=== PATIENT | female | born 1945 | race African-American/Black ===

== ENCOUNTER 2016-05-17 10:21 | Inpatient (IN) | payer OTHER ==
--- NOTE | ~2016-05-17 | HP ---
History And Physical [place] [id number] [facility] [place]. [address] NAME: ESTEFANY LINN : [birth year] STATUS : REG ER PAT#: [id number] AGE: 70 ADM/REG DATE : 05/17/16 MR#: [id number] REPORT SERV DATE: 05/17/16 DICTATED BY: ELEUTERIO LUNDBERG DATE: 05/17/16 REPORT STATUS : Draft TRANSCRIBED BY: MODGordon DATE: 05/17/16 DATE OF ADMISSION: 05/17/2016 REASON FOR ADMISSION: Chest pain with pulmonary embolism and elevated troponin. HISTORY: This is a 70-year-old black female who had a sudden onset of chest discomfort earlier today. She had shortness of breath. She is unable to get her breath fully. She does have a history of cardiac disease but had a negative graded exercise test by Dr. Armond Reich about 12 months ago. She came to the emergency room where she had a slightly elevated D-dimer but the troponin level was 0.21. She is still having some chest discomfort associated with this. She has a gassy feeling with some burping and belching. She feels hot and sweaty with it. She vomited with it as well. CTA of the chest did show evidence of a small pulmonary embolism. The EKG shows diffuse nonspecific ST and T-wave changes and left axis deviation. She does have a single pulmonary embolus in the posterior medial right lower lobe pulmonary artery, it does not occlude the artery and is likely subacute. There are no other emboli in other arteries. No lung masses or lung infiltrates were noted. The patient does have a history of high blood pressure and is seen by Dr. Eleuterio Colon for this. She has been admitted to the hospital for cardiac evaluation and for treatment of PE. We will plan to start with heparin because Eliquis which had been considered first may preclude further diagnostic cardiovascular testing which may be invasive. PAST MEDICAL HISTORY: MEDICATIONS: She is on the following medications at home from Dr. Colon and Dr. Louise: Aspirin 325 p.o. daily; Lipitor 20 mg p.o. at bedtime; Pepto-Bismol p.r.n. upset stomach; carvedilol 6.25 p.o. b.i.d.; Welchol 1875 mg p.o. q.p.m.; diltiazem XR 240 mg p.o. daily; Tylenol PM tablet at bedtime as needed; estradiol 2 mg p.o. each morning; multivitamins 1 a day; omeprazole 40 mg p.o. daily; potassium 20 mEq p.o. q.p.m.; sodium chloride nasal spray p.r.n.; pqfo-gjv-bktvhsk iron; and valsartan 160/12.5 HCT 1 p.o. q.a.m. ALLERGIES: NONE ARE KNOWN. SURGICAL HISTORY: She has had gallbladder surgery in the past. SOCIAL HISTORY: She is . She has 4 children, all of whom are alive and well. She does not smoke cigarettes or take any alcohol. She attends [employer]. She lives in the [facility] and grew up in [place]. FAMILY HISTORY: She had 3 brothers, 1 of lung cancer. She has 3 sisters. Her mother History And Physical [address] [address] NAME: ESTEFANY LINN : [birth year] STATUS : REG ER PAT#: [id number] AGE: 70 ADM/REG DATE : 05/17/16 MR#: [id number] REPORT SERV DATE: 05/17/16 DICTATED BY: ELEUTERIO LUNDBERG. DATE: 05/17/16 REPORT STATUS : Draft TRANSCRIBED BY: MARY LOU DATE: 05/17/16 had diabetes. Father of cancer as well. REVIEW OF SYSTEMS: She has had a colonoscopy and had a few polyps. She has had a weight loss of about 30 pounds over the last six months. Workup is in progress. Colonoscopy was negative. She is next going to have some sort of upper endoscopy. She has had abdominal pain intermittently. She has had diarrhea as well and the Welchol is what suppresses that as well as the high cholesterol. She has had no swelling of the lower extremities. No leg pain. No claudication. No chest pain with exertion. Her chest pain came on today at rest while she was lying in bed and has been in discomfort, this persisted ever since. It was noted. No abdominal swelling. No melena, hematemesis, fits, seizures, convulsions, or unilateral weakness. She has had no blood in her stool. No hemoptysis. No hematuria. No fever, chills, or night sweats. The remainder of the review of systems is negative. PHYSICAL EXAMINATION: VITAL SIGNS: Blood pressure 137/72 with a heart rate was 109, respiratory rate 18, afebrile. HEENT: EOMI. Sclerae clear. Conjunctivae pink. NECK: No bruit without any JVD. CHEST: Clear to A and P. HEART: Regular. S1, S2 without murmur, gallop, or click. BREASTS: Grossly without mass. ABDOMEN: Soft, nontender. Bowel sounds positive. No HSM. EXTREMITIES: She has had no edema. Distal pulses intact in dorsalis pedis and posterior tibial. NEUROLOGIC: She withdraws to plantar stimulation. Spinning Mule Tender equal and symmetric bilaterally. Coordination intact. She has no tremor. She has no sensory or motor deficit. SKIN: Without rash, ecchymosis, or bruising. LYMPHATICS: There is no adenopathy palpable. LABORATORY: 1. CT scan of the chest shows small single pulmonary embolus posterior medial right lower lobe that is not occlusive. 2. Elevated troponin at 0.21. 3. EKG abnormal with left axis deviation, diffuse ST and T-wave changes consistent with a possible previous inferior scar but no acute changes and this EKG has not changed from previous. 4. Chest x-ray was clear. 5. Liver tests were normal. Sodium 132, potassium 4.2, chloride 95, glucose 120, magnesium 1.5, calcium 8.0. Troponin 0.19. AST 49. The hemoglobin 10.4, hematocrit 31.5, white count is 3.5, and platelets 224,000. 6. The D-dimer was 0.58. 7. Portable chest x-ray showed no acute abnormality. History And Physical [address] [address] NAME: ESTEFANY LINN : [birth year] STATUS : REG ER PAT#: [id number] AGE: 70 ADM/REG DATE : 05/17/16 MR#: [id number] REPORT SERV DATE: 05/17/16 DICTATED BY: ELEUTERIO LUNDBERG DATE: 05/17/16 REPORT STATUS : Draft TRANSCRIBED BY: MODL DATE: 05/17/16 ASSESSMENT: 1. Pulmonary embolism. 2. ASCVD followed by Dr. Louise, now with elevated troponin with chest pain suspicious for angina pectoris though it is not exertional. We will follow serial troponins. I am going to go ahead and start with heparin IV though had initially thought that we would use Eliquis but this may preclude cardiac catheterization if necessary and Dr. Louise agrees. 3. Hypertension. 4. Estrogen deficiency, on estrogen . 5. Irritable bowel syndrome with diarrhea on Welchol. 6. History of colonoscopy with colonic polyps. 7. Weight loss of 30 pounds over the last six months. Possible occult malignancy. We will check CT scan of the abdomen looking for hypercoagulable induced state such as with pancreatic cancer or other occult malignancy. PLAN: With the elevated troponin, we will hold on the Eliquis for now but start back at b.i.d. for 7 days, then [address] Louise feels arteriography is not necessary and there is no change to the troponin and this is all demand ischemia. We will do a CT scan of the abdomen to rule out malignancy. We will start with the heparin protocol. DB/MODL Eleuterio Lundberg M.D. / [id number] CC: MD Eleuterio Mejia II, M.D.
--- NOTE | ~2016-05-17 | CN ---
Consultation Report [id number] [facility] [address] NAME: ESTEFANY GARZA : [birth year] STATUS : ADM IN PAT#: [id number] AGE: 70 ADM/REG DATE : 05/17/16 MR#: [id number] REPORT SERV DATE: 05/22/16 DICTATED BY: BRINA ADAMES DATE: 05/22/16 REPORT STATUS : Draft TRANSCRIBED BY: MODGordon DATE: 05/22/16 GI CONSULTATION DATE OF CONSULTATION: 05/22/2016 REASON FOR CONSULTATION: Evaluation and management of Hemoccult-positive stools, need for anticoagulation, and further evaluation of GI tract. HISTORY OF PRESENT ILLNESS: Ms. Garza is a very pleasant 70-year-old female patient, known to Dr. Misael Elam in the outpatient setting, who presented to [facility] on 05/17 with a chief complaint of chest pain and found to have pulmonary embolus as well as elevated troponins. She has been seen and evaluated by Cardiology, who feels like this is stress cardiomyopathy, [id number] [place]. She has a subacute pulmonary embolus, presently on a heparin drip. She has a history of anemia of iron deficiency with Hemoccult-positive stools here in the hospital. Last hemoglobin in 11/2015 was 11.4; on admission, she was 10.4 and presently, she is 9.9. She states that she has seen dark stools, but she is also on iron supplementation. She states that she has had some epigastric abdominal pain and weight loss of 30 pounds over the last six months with a decreased appetite. She does endorse some dysphagia to solids as well as nausea, but no emesis. She has had a recent colonoscopy with Dr. Elam on 04/08/2016. Indication for that exam was diarrhea. She was found to have a hepatic flexure polyp, which was biopsied and found within normal limits. She had a rectosigmoid polyp removed, found to be tubular adenomatous type. Findings of ascending and sigmoid colon diverticulosis as well as having random biopsies taken throughout the colon, which were all normal. Presently, she has had breakfast and is on a heparin drip. I have discussed with her we will plan to proceed with EGD tomorrow on 05/23. Risks, benefits, alternatives, and complications were detailed for her to include, but not limited to risk of bleeding, perforation, infection, reaction to medications as well as cardiac and pulmonary side effects. She is agreeable to proceed. PAST MEDICAL HISTORY: Positive for colon polyps, diverticulosis, diarrhea, hypertension, dyslipidemia, mild diastolic dysfunction, GERD. PAST SURGICAL HISTORY: Cholecystectomy. FAMILY HISTORY: Negative from a GI standpoint. SOCIAL HISTORY: Denies alcohol, tobacco, or illicits. ALLERGIES: NO KNOWN ALLERGIES. HOME MEDICATIONS: 325 mg aspirin, Lipitor. Pepto-Bismol, Coreg, Welchol, Cartia, Tylenol, estradiol, multivitamin, Prilosec, potassium, Devine nasal spray, wotp-kbr-nzzmedu iron tablet, Diovan. Consultation Report [address] [place]. [address] NAME: ESTEFANY GARZA : [birth year] STATUS : ADM IN MERGED WITH [facility]#: [id number] AGE: 70 ADM/REG DATE : 05/17/16 MR#: [id number] REPORT SERV DATE: 05/22/16 DICTATED BY: BRINA ADAMES DATE: 05/22/16 REPORT STATUS : Draft TRANSCRIBED BY: MARY LOU DATE: 05/22/16 REVIEW OF SYSTEMS: A 10-point review of systems obtained, pertinent positives addressed in the history of present illness. PERTINENT LABORATORY DATA: Sodium 139, potassium is 4.2, BUN is 6, creatinine 0.55. White count 4.1, hemoglobin 9.9, hematocrit is 29.3 with platelet count of 214. INR of 1.1. MICROBIOLOGY: Hemoccult positive, 03/03. PHYSICAL EXAMINATION: VITAL SIGNS: Temperature is 96.8, pulse of 80, respirations 20, and blood pressure 104/66. NEURO: Reveals an alert female, who is walking in her room. GENERAL: She is cooperative. She is in no obvious acute distress. She is awake, alert, and oriented x3. HEAD, EARS, EYES, NOSE, AND THROAT: Anicteric. Pupils equal, round, reactive to light and accommodation. Normocephalic and atraumatic. NECK: No JVD. No palpable nodes. LUNGS: Diminished with normal respiratory effort exhibited. Equal expansion. CARDIOVASCULAR SYSTEM: Regular rate and rhythm. ABDOMEN: Soft, nondistended, nontender with active bowel sounds in all four quadrants. No organomegaly appreciated. EXTREMITIES: No edema. Normal distal pulses. SKIN: Warm, dry, and intact. ASSESSMENT: 1. Hemoccult-positive stools without overt signs of bleeding. 2. Acute on chronic anemia. 3. Stress cardiomyopathy. 4. Pulmonary embolism. 5. History of diarrhea with negative colonoscopy with biopsies on 04/08/2016. PLAN: 1. N.P.O. after midnight. 2. Hold heparin drip four to six hours prior to endoscopy. 3. EGD tomorrow on 05/[address] Anne. 4. Continue proton pump inhibitor. 5. Other recommendations to follow endoscopy. ROSEANNE/MARY LOU JUDSON Venegas Consultation Report [address] [place]. [address] NAME: ESTEFANY GARZA : [birth year] STATUS : ADM IN [facility]GED WITH [facility]#: [id number] AGE: 70 ADM/REG DATE : 05/17/16 MR#: [id number] REPORT SERV DATE: 05/22/16 DICTATED BY: BRINA ADAMES DATE: 05/22/16 REPORT STATUS : Draft TRANSCRIBED BY: MARY LOU DATE: 05/22/16 / [id number] CC: DO Pop Leiva M.D.
--- NOTE | ~2016-05-17 | CN ---
Consultation Report [address] [place]. [address] NAME: ESTEFANY GARZA : [birth year] STATUS : ADM IN PAT#: [id number] AGE: 70 ADM/REG DATE : 05/17/16 MR#: [id number] REPORT SERV DATE: 05/17/16 DICTATED BY: ABDOULAYE HERNANDEZ DATE: 05/17/16 REPORT STATUS : Draft TRANSCRIBED BY: MODGordon DATE: 05/17/16 CARDIOLOGY CONSULTATION NOTE DATE OF CONSULTATION: 05/17/2016 REASON FOR CONSULTATION: Elevated cardiac biomarkers in a 70-year-old woman with newly diagnosed right segmental pulmonary embolism. HISTORY OF PRESENT ILLNESS: Ms Garza is a pleasant 70-year-old woman with no known coronary heart disease. The patient does have a history of chest pain lasting somewhat more than 12 months. She has undergone an extensive workup by Dr. Fransico Louise, including an exercise treadmill stress test with myocardial perfusion imaging performed in December of 2014. The patient had a normal stress test. She had no chest pain on the treadmill at that time. The patient reports that her chronic chest pain is a burning sensation in the substernal region. It is not exacerbated by exertion, but is occasionally associated with nausea. The patient denies any palpitations, dizziness, or syncope. She denies orthopnea or paroxysmal nocturnal dyspnea. The patient reports one to two days of a recent onset abdominal pain associated with nausea and belching. It is this pain that brought the patient to the emergency room. The patient also describes a hot and sweaty sensation. She had a single episode of emesis. The patient underwent CT scan of the thorax. This showed a right segmental pulmonary embolus. There is no other acute cardiopulmonary disease reported. The patient continues to have chest pain at this time, which is exacerbated by deep inspiration. She is otherwise without specific complaints. PAST MEDICAL HISTORY: 1. Hypertension. 2. Dyslipidemia. 3. History of mild diastolic dysfunction by echocardiography. 4. Gastroesophageal reflux disease. PAST SURGICAL HISTORY: Significant for cholecystectomy in the past. FAMILY HISTORY: This is negative for early coronary heart disease or sudden cardiac . SOCIAL HISTORY: The patient has no significant history of tobacco, alcohol, or drug use. She is and has four children, all of whom are alive and well. ALLERGIES: THE PATIENT HAS NO KNOWN MEDICATION ALLERGIES. HOME MEDICATIONS: Consultation Report [address] [place]. [address] NAME: ESTEFANY GARZA : 47 STATUS : ADM IN PAT#: [id number] AGE: 70 ADM/REG DATE : 05/17/16 MR#: [id number] REPORT SERV DATE: 05/17/16 DICTATED BY: ABDOULAYE HERNANDEZ DATE: 05/17/16 REPORT STATUS : Draft TRANSCRIBED BY: MARY LOU DATE: 05/17/16 1. Aspirin 81 mg p.o. daily. 2. Lipitor 20 mg p.o. q.h.s. 3. Pepto-Bismol 30 mL p.o. as needed. 4. Carvedilol 6.25 mg p.o. twice daily. 5. WelChol 1875 mg p.o. q.h.s. 6. Diltiazem XT 240 mg p.o. daily. 7. Tylenol P.M. one tablet p.o. q.h.s. 8. Estradiol 2 mg p.o. q.a.m. 9. Multivitamin with minerals one tab daily. 10.Omeprazole 40 mg p.o. q.a.m. 11.Potassium chloride 20 mEq p.o. q.h.s. 12.Saline nasal spray. 13.Valsartan/hydrochlorothiazide 160 mg/12.5 mg one tab q.a.m. 14.Iron supplementation one tab q.p.m. REVIEW OF SYSTEMS: A complete 12-system review was performed. This is significant for an unintentional 30- pound weight loss over the preceding several months. The 12-system review is otherwise noncontributory except for the pertinent positives and negatives noted in the history of present illness above. PHYSICAL EXAMINATION: VITAL SIGNS: Temp is 97.3 degrees Fahrenheit, blood pressure is 124/95 mmHg, heart rate is 120 beats per minute and regular, respirations 18, and oxygen saturation is 99% on 2 L nasal cannula. GENERAL: The patient is a somewhat fatigued, but otherwise well-nourished well-developed woman, in no acute distress. EYES: PERRL, EOMI, clear conjunctiva. HEAD/MNT: NCAT with moist mucous membranes and grossly normal hard and soft palate. NECK: Supple with no obvious thyromegaly or lymphadenopathy CARDIOVASCULAR: There is a regular rhythm with a normal S1 and a physiologically split second heart sound. Aside from a mildly elevated heart rate, the exam is otherwise unremarkable. The jugular venous pressure appears normal. PULMONARY: Clear to auscultation bilaterally with no wheezing, rales, rhonchi, or dullness to percussion. ABDOMINAL: Soft, non-tender, non-distended with no hepatosplenomegaly noted. EXTREMITIES: No clubbing, cyanosis or edema. MUSCULOSKELETAL: Grossly normal strength and range of motion in all extremities INTEGUMENTARY: Skin appears intact with no bruises, wounds or active lesions noted NEURO/PSYC: Alert and oriented x3, with no dysarthria, facial droop or lateralizing weakness noted. STUDIES: 12-lead EKG: The EKG shows poor anterior R-wave progression with nonspecific ST/T- wave abnormalities. It is not significantly changed since a previous tracing from Dr. Louise's office dated 11/29/2015. Consultation Report [address] [place]. [address] NAME: ESTEFANY GARZA : 49 STATUS : ADM IN PAT#: [id number] AGE: 70 ADM/REG DATE : 05/17/16 MR#: [id number] REPORT SERV DATE: 05/17/16 DICTATED BY: ABDOULAYE HERNANDEZ DATE: 05/17/16 REPORT STATUS : Draft TRANSCRIBED BY: MARY LOU DATE: 05/17/16 LABORATORY DATA: CBC shows a white blood cell count of 3.5, hemoglobin 10.4, hematocrit 32, platelets 226. INR is 1.1. PTT is 30. Sodium is 132, potassium 4.2, chloride is 95, CO2 of 24, BUN 14, creatinine is 0.8, glucose 120, calcium is 8.0, magnesium is 1.5. Troponin is elevated 0.19, AST is 43. The patient did have a mildly elevated D-dimer. ASSESSMENT AND PLAN: 1. Elevated cardiac biomarkers: This is most likely secondary to right ventricular strain from the patient's pulmonary embolism. The patient's chest pain is not strongly suggestive of angina. I would recommend that a transthoracic echocardiogram be performed. If there is evidence of right ventricular strain, this is the most likely etiology of the patient's elevated cardiac biomarkers. If the patient's right ventricular function is normal, it may be reasonable to consider cardiac catheterization next week for definitive exclusion of coronary heart disease given the patient's long history of chest pain. The patient will be started on IV heparin drip for treatment of her pulmonary embolism. We would recommend oral anticoagulation for at least six months. 2. Weight loss and pulmonary embolism: A workup for occult malignancy should be pursued. 3. Hypertension: We will continue the patient's home medication regimen as necessary. We will hold antihypertensive for any evidence of shock. Thank you for allowing me to participate in the care of Ms Garza. The Cardiology Service will continue to follow the patient closely during this admission. JCH/MODL Abdoulaye Hernandez MD / [id number] CC: MD Pop Mejia II, M.D.
--- NOTE | ~2016-05-17 | DS ---
Discharge Summary [place] [place]. [address] NAME: ESTEFANY LINN : [birth year] STATUS : DIS IN PAT#: [id number] AGE: 70 ADM/REG DATE : 05/17/16 MR#: [id number] REPORT SERV DATE: 05/25/16 DICTATED BY: ELEUTERIO LAWSON DATE: 05/24/16 REPORT STATUS : Draft TRANSCRIBED BY: MODL DATE: 05/24/16 ADMISSION DATE: 05/17/2016 DISCHARGE DATE: 05/24/2016 DISCHARGE DIAGNOSES: 1. Subacute pulmonary embolus. 2. Takotsubo stress cardiomyopathy. 3. Transient hypotension associated with medication. 4. Occult gastrointestinal bleeding. 5. Acute blood loss anemia. 6. Nonbleeding superficial gastric ulcer with no stigmata of bleeding in gastric antrum on EGD, 05/23/2016. 7. Gastritis, biopsy pending, 05/23/2016 EGD. 8. White speckled mucosa gastric body, biopsy pending, EGD 05/23/2016. 9. Welchol responsive diarrhea with recent colonoscopy, Dr. Elam, 04/08/2016, demonstrating hepatic flexure polyp, rectosigmoid polyp, an ascending and sigmoid colon diverticulosis with negative colon biopsies. 10.Abnormal serum protein electrophoresis, immunofixation pending. Needs office followup. OPERATIONS AND PROCEDURES: Coronary arteriography, 05/20/2016, Dr. Hernandez. PRESENT ILLNESS: This is a 70-year-old female, who was triaged in the emergency room on 05/17/2016 at 1021 hours complaining of chest pain. In the setting of estrogen replacement therapy, she was evaluated for a pulmonary embolus with a CT angiogram. This demonstrated a single pulmonary embolus in the posterior medial right lower lobe pulmonary artery, partially retracted without complete occlusion suggesting subacute pulmonary embolus. No other abnormalities were noted. She was referred to the Hospitalist Service for admission. She was seen by Dr. Eleuterio Shukla and admitted as described on admission history and physical examination. ADDITIONAL HISTORY: Per Dr. Shukla. PHYSICAL EXAMINATION: Per Dr. Shukla. ADMISSION LABORATORY: Per Dr. Shukla. HOSPITAL COURSE: She was admitted by Dr. Shukla with: 1. Pulmonary embolus. 2. Chest pain with elevated troponin in the setting of negative stress imaging within the past 12 months. 3. Hypertension. 4. Estrogen deficiency, on estrogen replacement. Discharge Summary [place] [address] [place]. [address] NAME: ESTEFANY LINN : [birth year] STATUS : DIS IN PAT#: [id number] AGE: 70 ADM/REG DATE : 05/17/16 MR#: [id number] REPORT SERV DATE: 05/25/16 DICTATED BY: ELEUTERIO LAWSON DATE: 05/24/16 REPORT STATUS : Draft TRANSCRIBED BY: MARY LOU DATE: 05/24/16 5. Welchol responsive diarrhea with history of colon polyps and diverticulosis. 6. Weight loss, consider occult malignancy. On admission, she was placed on [address] [place] [address]. She was started on a heparin drip. 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 Louise. Additional imaging was done to evaluate malignancy given her presentation as described. She was admitted to [address] [place] [address]. Her cardiac troponins trended 0.19, 0.91, 0.58, 0.30, and 0.17. An echocardiogram was done that showed mild LV enlargement with dilatation of the left ventricular apex. There was severe decrease in systolic function with anterior anteroseptal apical akinesis. Estimated ejection fraction was 30%. There was no evidence of an apical thrombus. There was normal RV size and systolic function. She was started on guideline-directed medical therapy for left ventricular dysfunction. She developed some hypotension requiring medication adjustment and IV fluids. On 05/20/2016, she was taken to the catheterization laboratory. She was found to have normal epicardial coronary arteries. She had severely depressed left ventricular systolic function with an estimated EF at 20%-25%. She had hyperkinetic systolic function of the basal myocardium with akinesis of the mid and apical myocardial segments consistent with stressed induced or Takotsubo cardiomyopathy. There was severely elevated left ventricular end-diastolic pressure of 28. There was mild dilatation of the ascending thoracic aorta. Medical therapy was recommended. For hospitalist care, post admission was by Dr. Little through 05/20/2016. Her care was assumed by the undersigned on 05/21/2016, and she was followed until discharge. A CT scan of her abdomen done post admission had demonstrated tiny bilateral pleural effusions with minimal atelectatic changes. There was a right hepatic lobe cyst. 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 There was a left renal cyst, and she was post hysterectomy. Her total bilirubin, alkaline phosphatase, and ALT were normal. Her AST was borderline at 43. No further imaging was pursued. On admission, her hemoglobin was 10.4. On 05/20/2016, it was 9 4. An evaluation included an iron of 28, TIBC 236, ferritin 446, B12 of 555. An LDH was 150. Her reticulocyte count was 2.5%, absolute 81.7. A serum protein electrophoresis was done which demonstrated abnormal gamma region bands and an immunofixation is pending. A stool was checked for occult blood and was positive. GI consultation was obtained for an EGD to further evaluate her admitting GI symptoms, weight loss, positive stool, and pulmonary embolus with need for anticoagulation. Discharge Summary [address] [address] NAME: ESTEFANY LINN : [birth year] STATUS : DIS IN PAT#: [id number] AGE: 70 ADM/REG DATE : 05/17/16 MR#: [id number] REPORT SERV DATE: 05/25/16 DICTATED BY: ELEUTERIO LAWSON DATE: 05/24/16 REPORT STATUS : Draft TRANSCRIBED BY: MARY LOU DATE: 05/24/16 On 05/23/2016, an EGD was done with findings as noted above. Post procedure, she was started on Xarelto after GI clearance. On 05/24/2016, she felt better. She was ambulatory. She was not having chest pain. She thought her breathing was normal. She was not having nausea. On exam, her blood pressure was 102/66, and she was in sinus rhythm. She had no rales on exam, no edema, and a gallop that was less prominent on cardiac exam. Her hemoglobin was 10.3. At this point in her hospitalization, it was felt she had achieved a level of improvement and stability where she would be safely discharged home to be seen by her primary care physician, Dr. Eleuterio Colon, next week and by Cardiology in four weeks. She will have GI followup when her biopsies are available. Her activity will be as tolerated. She was advised to restrict her sodium. Medication at discharge: She will not continue aspirin at this time. She will take Lipitor 20 mg daily; Coreg 3.125 mg twice daily; Welchol 1875 mg every evening; multivitamin one daily; Prilosec 40 mg daily; potassium 20 mEq daily; Xarelto 15 mg twice daily for 21 days, then 20 mg daily when done with 15 mg dosing; Diovan 160 mg daily; OTC iron daily; Pepto- Bismol as needed; Tylenol as needed; [place] nasal spray as needed; and Valium 5 mg twice daily as needed. She will not use hydrochlorothiazide, estradiol, or Cartia XT at this time. Discharge time greater than 30 minutes. DD/MODL Eleuterio Lawson M.D. / [id number] CC: Celine Estevez M.D. James E Gilbert II, MD David Bosshardt, M.D. Andrew H Fowler, M.D. Sumeet Bhushan, M.D. John Carter Hemphill, MD
--- NOTE | ~2016-05-17 | EGD ---
EGD REPORT [facility] [address] [address] NAME: BRIONNA GARZA : [birth year] STATUS : ADM IN PAT#: [id number] AGE: 70 ADM/REG DATE : 05/17/16 MR#: [id number] REPORT SERV DATE: 05/23/16 DICTATED BY: MARCELINO MENDOZA DATE: 05/23/16 REPORT STATUS : Draft [facility]ANSCRIBED BY: [facility] DATE: 05/23/16 Endoscopy Center Patient Name: Brionna Garza Date of : 1945 Attending MD: MARCELINO MENDOZA, Procedure Date No Time: 05/23/2016 Procedure: Upper GI endoscopy Indications: Iron deficiency anemia secondary to chronic blood loss, Heme positive stool Referring MD: JUSTICE ANDERSON MD Medicines: Monitored Anesthesia Care Complications: No immediate complications. Estimated blood loss: None. Procedure: Pre-Anesthesia Assessment: - ASA Grade Assessment: IV - A patient with severe systemic disease that is a constant threat to life. After obtaining informed consent, the endoscope was passed under direct vision. Throughout the procedure, the patient's blood pressure, pulse, and oxygen saturations were monitored continuously. The GIF [id number] was introduced through the mouth, and advanced to the second part of duodenum. The upper GI endoscopy was accomplished without difficulty. The patient tolerated the procedure well. Findings: The esophagus was normal. One non-bleeding superficial gastric ulcer with no stigmata of bleeding was found in the gastric antrum. The lesion was 5 mm in largest dimension. Biopsies were taken with a cold forceps for histology. Verification of patient identification for the specimen was done. Estimated blood loss was minimal. Patchy mild inflammation characterized by erythema was found in the entire examined stomach. Biopsies were taken with a cold forceps for histology. Verification of patient identification for the specimen was done. Estimated blood loss was minimal. Localized mild mucosal abnormality characterized by white specks was found in the gastric body. Biopsies were taken with a cold forceps for histology. Verification of patient identification for the specimen was done. Estimated blood loss was minimal. The exam of the stomach was otherwise normal. The cardia and gastric fundus were normal on retroflexion. The examined duodenum was normal. Impression: - Normal esophagus. - Gastric ulcer with clean base. Biopsied. EGD REPORT [address] [address] NAME: BRIONNA GARZA : [birth year] STATUS : ADM IN [facility]#: [id number] AGE: 70 ADM/REG DATE : 05/17/16 MR#: [id number] REPORT SERV DATE: 05/23/16 DICTATED BY: MARCELINO MENDOZA DATE: 05/23/16 REPORT STATUS : Draft TRANSCRIBED BY: [employer] DATE: 05/23/16 - Gastritis. Biopsied. - White specked mucosa in the gastric body. Biopsied. - Normal examined duodenum. Recommendation: - Patient has a contact number available for emergencies. The signs and symptoms of potential delayed complications were discussed with the patient. Return to normal activities tomorrow. Written discharge instructions were provided to the patient. - Return to previous diet. - Continue present medications. - Await pathology results. - It is ok to anticoagulate patient. Procedure Code(s): --- Professional --- 99189, Esophagogastroduodenoscopy, flexible, transoral; with biopsy, single or multiple Diagnosis Code(s): --- Professional --- K25.9, Gastric ulcer, unspecified as acute or chronic, without hemorrhage or perforation K29.70, Gastritis, unspecified, without bleeding K31.9, Disease of stomach and duodenum, unspecified D50.0, Iron deficiency anemia secondary to blood loss (chronic) R19.5, Other fecal abnormalities CPT copyright 2013 [employer]. All rights reserved. The codes documented in this report are preliminary and upon health information coder review may be revised to meet current compliance requirements. MARCELINO MENDOZA, 05/23/2016 2:10 PM Number of Addenda: 0 Note Initiated On: 05/23/2016 1:54 PM Scope Withdrawal Time 0 hours 0 minutes 0 seconds [address] [place] [address]
--- NOTE | ~2016-05-17 | IDS ---
Interim Discharge Summary [facility] [address] [place]. [address] NAME: ESTEFANY LINN : [birth year] STATUS : ADM IN PAT#: [id number] AGE: 70 ADM/REG DATE : 05/17/16 MR#: [id number] REPORT SERV DATE: 05/20/16 DICTATED BY: VANDANA ELLINGTON II DATE: 05/20/16 REPORT STATUS : Draft TRANSCRIBED BY: MODGordon DATE: 05/20/16 ADMISSION DATE: 05/17/2016 DISCHARGE DATE: 05/20/2016 DATE OF INTERIM: 05/20/2016. INTERIM DIAGNOSES: 1. Subacute pulmonary embolus. 2. Takotsubo stress cardiomyopathy. 3. Auu-VV-sgmdxenet myocardial infarction. 4. Hypotension. 5. History of estrogen deficiency. 6. History of irritable bowel syndrome. CONSULTS: Dr. Hernandez with Cardiology. BRIEF HISTORY OF PRESENT ILLNESS: The patient is a 70-year-old female with the above history, who presented to [facility] with chest pain. For detailed history and physical examination, please see Dr. Shukla's note from 05/17/2016. HOSPITAL COURSE: On admission, the patient was found to have a mildly elevated troponin at 0.19, and CTA of the chest was done, showing a single pulmonary embolus in the posterior medial right lower lobe pulmonary artery. The embolus was partially retracted without complete occlusion of the artery likely subacute. Her troponin continued to trend up to 0.91 before trending back down. She was started on a heparin drip. An echocardiogram was done showing a severely depressed ejection fraction of 30% with anterior, anteroseptal, and apical akinesis. The patient subsequently went for a cardiac cath, which showed normal epicardial coronary arteries and severely depressed LV systolic function with EF of 20% to 25%. Hyperkinetic systolic function of the base of the myocardium with akinesis of the mid and apical myocardial segments consistent with stress-induced her takotsubo cardiomyopathy. The patient was initially started on several medications including Coreg, Lasix, and valsartan. She did have a drop in her blood pressure in the 70s and needed IV fluids and discontinuation of her medications except for the valsartan. Currently, her blood pressure is doing well, and her vitals are actually quite stable. Her chest pain resolved after the first night, and currently, she is asymptomatic. Given the results, it is possible the patient is able to be discharged home soon. Dr. Pop Lawson will take over the patient's care starting tomorrow. TOLU/MARY LOU Vandana Ellington II, MD / [id number] Interim Discharge Summary [address] [address] NAME: ESTEFANY LINN : [birth year] STATUS : ADM IN [facility]#: [id number] AGE: 70 ADM/REG DATE : 05/17/16 MR#: [id number] REPORT SERV DATE: 05/20/16 DICTATED BY: VANDANA ELLINGTON II DATE: 05/20/16 REPORT STATUS : Draft TRANSCRIBED BY: MARY LOU DATE: 05/20/16 CC: MD Pop Mejia II, M.D.
[2016-05-17 10:58] LABS: BASOPHILS 0.6 %; BASOPHILS ABSOLUTE 0.02 10/3/uL (0.0-0.16); EOSINOPHILS 3.7 %; EOSINOPHILS ABSOLUTE 0.13 10/3/uL (0.0-0.53); HEMATOCRIT 31.5 % (36.0-48.0); HEMOGLOBIN 10.4 g/dL (12.0-16.0); IMMATURE GRANULOCYTES 0.3 %; IMMATURE GRANULOCYTES ABSOLUTE 0.01 10/3/uL (0.0-0.11); LYMPHOCYTES 39.6 %; LYMPHOCYTES ABSOLUTE 1.39 10/3/uL (0.67-4.30); MEAN CORPUSCULAR HEMOGLOB 29.2 pg (26.0-34.0); MEAN PLATELET VOLUME 8.8 fL (9.2-13.0); MONOCYTES 10.5 %; MONOCYTES ABSOLUTE 0.37 10/3/uL (0.21-1.20); NEUTROPHILS 45.3 %; NEUTROPHILS ABSOLUTE 1.59 10/3/uL (2.02-8.40); PLATELET COUNT 226 10/3/uL (150-400); RBC DISTRIBUTION WIDTH 14.4 % (12.0-16.0); RED CELL COUNT 3.56 10/6/uL (4.0-5.6); WHITE BLOOD CELLS 3.5 10/3/uL (4.5-10.5)
[2016-05-17 10:59] LABS: MANUAL DIFF NO %; MEAN CORPUSCULAR VOLUME 88.5 fL (80-100)
[2016-05-17 11:07] LABS: INTERNATIONAL NORMAL RATI 1.1 UNITS (-); PARTIAL THROMBO TIME 29.9 SEC (22.5-37.2); PROTIME (NOT ORD) 13.7 SEC (12.0-14.5)
[2016-05-17 11:13] LABS: BUN (BLOOD UREA NITROGEN) 14 MG/DL (6-23); CHLORIDE, SERUM 95 MMOL/L (96-112); CO2 (CARBON DIOXIDE) 24 MMOL/L (24-34); CREATININE 0.81 MG/DL (0.55-1.02); GFR AFRICAN AMERICAN 86 ML/MIN (>=60); GFR NON AFRICAN AMERICAN 75 ML/MIN (>=60); GLUCOSE, SERUM 120 MG/DL (60-99); POTASSIUM, SERUM 4.2 MMOL/L (3.5-5.3); SODIUM, SERUM 132 MMOL/L (135-148)
[2016-05-17 11:14] LABS: CHEST PAIN PROFILE TAT 0 Hrs 22 Mins; TROPONIN I 0.19 NG/ML (<0.05)
[2016-05-17] MEDS ORDERED: KDUR20 PO (11:29)
[2016-05-17] MEDS ORDERED: CARTIA XT240 MG/24 PO (11:30)
[2016-05-17] MEDS ORDERED: DIOVAN HC1 PO (11:30)
[2016-05-17] MEDS ORDERED: PRILOSEC40 MG PO (11:30)
[2016-05-17] MEDS ORDERED: ESTRADIOL2 MG PO (11:31)
[2016-05-17] MEDS ORDERED: LIPITOR20 PO (11:31)
[2016-05-17] MEDS ORDERED: WELCHOL 625 MG625 MG PO (11:31)
[2016-05-17] MEDS ORDERED: MULTIVIT/MIN PO (11:32)
[2016-05-17] MEDS ORDERED: OTC IRON TABLET PO (11:32)
[2016-05-17] MEDS ORDERED: COREG6 PO (11:32)
[2016-05-17] MEDS ORDERED: PEPTO BISMOL LIQ1 ML PO (11:32)
[2016-05-17] MEDS ORDERED: TYLENOL PM PO (11:33)
[2016-05-17] MEDS ORDERED: OCEAN NAS (11:33)
[2016-05-17] MEDS ORDERED: ASAEC PO (11:33)
[2016-05-17 12:24] LABS: D-DIMER QUANTITATIVE 0.58 ug/mLFEU (< 0.50)
[2016-05-17 12:58] LABS: ALBUMIN 3.5 G/DL (3.5-5.0); ALKALINE PHOSPHATASE 55 U/L (45-117); DIRECT BILIRUBIN 0.1 MG/DL (0.0-0.4); INDIRECT BILIRUBIN(NOT ORDER) 0.2 MG/DL (0.1-0.9); SGOT(AST) 43 U/L (5-40); SGPT(ALT) 49 U/L (5-65); TOTAL BILIRUBIN 0.3 MG/DL (0-1.2); TOTAL PROTEIN 6.9 G/DL (6.0-8.5)
[2016-05-19 06:29] LABS: BASOPHILS 0.5 %; BASOPHILS ABSOLUTE 0.02 10/3/uL (0.0-0.16); EOSINOPHILS 2.2 %; EOSINOPHILS ABSOLUTE 0.09 10/3/uL (0.0-0.53); HEMATOCRIT 29.5 % (36.0-48.0); HEMOGLOBIN 10.2 g/dL (12.0-16.0); IMMATURE GRANULOCYTES 0.5 %; IMMATURE GRANULOCYTES ABSOLUTE 0.02 10/3/uL (0.0-0.11); LYMPHOCYTES 39.3 %; LYMPHOCYTES ABSOLUTE 1.58 10/3/uL (0.67-4.30); MEAN CORPUS HGB CONC 34.6 g/dL (32.0-36.0); MEAN CORPUSCULAR HEMOGLOB 30.4 pg (26.0-34.0); MEAN CORPUSCULAR VOLUME 87.8 fL (80-100); MEAN PLATELET VOLUME 9.1 fL (9.2-13.0); MONOCYTES 12.4 %; NEUTROPHILS 45.1 %; NEUTROPHILS ABSOLUTE 1.81 10/3/uL (2.02-8.40); PLATELET COUNT 205 10/3/uL (150-400); RBC DISTRIBUTION WIDTH 14.2 % (12.0-16.0); RED CELL COUNT 3.36 10/6/uL (4.0-5.6)
[2016-05-19 06:30] LABS: MANUAL DIFF NO %
[2016-05-19 06:37] LABS: PARTIAL THROMBO TIME 56.7 SEC (22.5-37.2)
[2016-05-19 06:45] LABS: BUN (BLOOD UREA NITROGEN) 4 MG/DL (6-23); CALCIUM, SERUM 7.9 MG/DL (8.5-10.4); CHLORIDE, SERUM 98 MMOL/L (96-112); CO2 (CARBON DIOXIDE) 25 MMOL/L (24-34); GFR AFRICAN AMERICAN 109 ML/MIN (>=60); GFR NON AFRICAN AMERICAN 94 ML/MIN (>=60); GLUCOSE, SERUM 101 MG/DL (60-99); POTASSIUM, SERUM 3.6 MMOL/L (3.5-5.3); SODIUM, SERUM 133 MMOL/L (135-148)
[2016-05-19 13:31] LABS: HEMATOCRIT 28.9 % (36.0-48.0); HEMOGLOBIN 9.8 g/dL (12.0-16.0)
[2016-05-20 05:45] LABS: BASOPHILS 0.5 %; BASOPHILS ABSOLUTE 0.02 10/3/uL (0.0-0.16); EOSINOPHILS 3.7 %; EOSINOPHILS ABSOLUTE 0.16 10/3/uL (0.0-0.53); HEMOGLOBIN 9.4 g/dL (12.0-16.0); IMMATURE GRANULOCYTES 0.5 %; IMMATURE GRANULOCYTES ABSOLUTE 0.02 10/3/uL (0.0-0.11); LYMPHOCYTES 38.8 %; LYMPHOCYTES ABSOLUTE 1.67 10/3/uL (0.67-4.30); MANUAL DIFF NO %; MEAN CORPUS HGB CONC 33.6 g/dL (32.0-36.0); MEAN CORPUSCULAR HEMOGLOB 30.2 pg (26.0-34.0); MEAN PLATELET VOLUME 9.5 fL (9.2-13.0); MONOCYTES 13.5 %; MONOCYTES ABSOLUTE 0.58 10/3/uL (0.21-1.20); NEUTROPHILS ABSOLUTE 1.85 10/3/uL (2.02-8.40); PLATELET COUNT 202 10/3/uL (150-400); RBC DISTRIBUTION WIDTH 14.7 % (12.0-16.0); RED CELL COUNT 3.11 10/6/uL (4.0-5.6); WHITE BLOOD CELLS 4.3 10/3/uL (4.5-10.5)
[2016-05-20 06:00] LABS: PARTIAL THROMBO TIME 119.4 SEC (22.5-37.2)
[2016-05-20 06:04] LABS: CALCIUM, SERUM 8.1 MG/DL (8.5-10.4); CHLORIDE, SERUM 104 MMOL/L (96-112); CO2 (CARBON DIOXIDE) 25 MMOL/L (24-34); CREATININE 0.63 MG/DL (0.55-1.02); GFR AFRICAN AMERICAN 107 ML/MIN (>=60); GFR NON AFRICAN AMERICAN 92 ML/MIN (>=60); GLUCOSE, SERUM 90 MG/DL (60-99); POTASSIUM, SERUM 3.9 MMOL/L (3.5-5.3)
[2016-05-20 06:05] LABS: BUN (BLOOD UREA NITROGEN) 8 MG/DL (6-23); SODIUM, SERUM 141 MMOL/L (135-148); TROPONIN I 0.17 NG/ML (<0.05)
[2016-05-21 08:38] LABS: BUN (BLOOD UREA NITROGEN) 6 MG/DL (6-23); CALCIUM, SERUM 8.9 MG/DL (8.5-10.4); CHLORIDE, SERUM 100 MMOL/L (96-112); CO2 (CARBON DIOXIDE) 26 MMOL/L (24-34); CREATININE 0.57 MG/DL (0.55-1.02); GFR AFRICAN AMERICAN 110 ML/MIN (>=60); GFR NON AFRICAN AMERICAN 95 ML/MIN (>=60); GLUCOSE, SERUM 94 MG/DL (60-99); SODIUM, SERUM 137 MMOL/L (135-148)
[2016-05-21 11:04] LABS: RETICULOCYTE COUNT 2.5 % (0.5-2.5); RETICULOCYTE COUNT ABSOLUTE 81.7 10/3/uL (20.2-119.8)
[2016-05-21 11:40] LABS: FERRITIN 446 NG/ML (8-252); IRON BINDING CAPACITY 236 MCG/DL (225-410); IRON, SERUM 28 MCG/DL (35-150)
[2016-05-21 11:52] LABS: T PROTEIN (ELECT)(NOT OR 6.2 G/DL (6.0-8.5)
[2016-05-22 04:23] LABS: BASOPHILS 0.5 %; BASOPHILS ABSOLUTE 0.02 10/3/uL (0.0-0.16); EOSINOPHILS 4.4 %; EOSINOPHILS ABSOLUTE 0.18 10/3/uL (0.0-0.53); HEMATOCRIT 29.3 % (36.0-48.0); HEMOGLOBIN 9.9 g/dL (12.0-16.0); IMMATURE GRANULOCYTES 0.7 %; IMMATURE GRANULOCYTES ABSOLUTE 0.03 10/3/uL (0.0-0.11); LYMPHOCYTES 36.2 %; LYMPHOCYTES ABSOLUTE 1.49 10/3/uL (0.67-4.30); MEAN CORPUS HGB CONC 33.8 g/dL (32.0-36.0); MEAN CORPUSCULAR HEMOGLOB 30.4 pg (26.0-34.0); MEAN CORPUSCULAR VOLUME 89.9 fL (80-100); MEAN PLATELET VOLUME 8.9 fL (9.2-13.0); MONOCYTES 9.5 %; MONOCYTES ABSOLUTE 0.39 10/3/uL (0.21-1.20); NEUTROPHILS 48.7 %; NEUTROPHILS ABSOLUTE 2.01 10/3/uL (2.02-8.40); PLATELET COUNT 214 10/3/uL (150-400); RBC DISTRIBUTION WIDTH 14.8 % (12.0-16.0); RED CELL COUNT 3.26 10/6/uL (4.0-5.6); WHITE BLOOD CELLS 4.1 10/3/uL (4.5-10.5)
[2016-05-22 04:24] LABS: MANUAL DIFF NO %
[2016-05-22 04:37] LABS: BUN (BLOOD UREA NITROGEN) 6 MG/DL (6-23); CALCIUM, SERUM 8.4 MG/DL (8.5-10.4); CHLORIDE, SERUM 104 MMOL/L (96-112); CO2 (CARBON DIOXIDE) 25 MMOL/L (24-34); CREATININE 0.55 MG/DL (0.55-1.02); GFR AFRICAN AMERICAN 112 ML/MIN (>=60); GFR NON AFRICAN AMERICAN 96 ML/MIN (>=60); GLUCOSE, SERUM 103 MG/DL (60-99); POTASSIUM, SERUM 4.2 MMOL/L (3.5-5.3); SODIUM, SERUM 139 MMOL/L (135-148)
[2016-05-23 05:01] LABS: BASOPHILS 0.6 %; BASOPHILS ABSOLUTE 0.02 10/3/uL (0.0-0.16); EOSINOPHILS 4.9 %; EOSINOPHILS ABSOLUTE 0.16 10/3/uL (0.0-0.53); HEMATOCRIT 27.6 % (36.0-48.0); HEMOGLOBIN 9.5 g/dL (12.0-16.0); IMMATURE GRANULOCYTES 0.6 %; IMMATURE GRANULOCYTES ABSOLUTE 0.02 10/3/uL (0.0-0.11); LYMPHOCYTES 34.4 %; LYMPHOCYTES ABSOLUTE 1.12 10/3/uL (0.67-4.30); MEAN CORPUS HGB CONC 34.4 g/dL (32.0-36.0); MEAN CORPUSCULAR HEMOGLOB 30.8 pg (26.0-34.0); MEAN CORPUSCULAR VOLUME 89.6 fL (80-100); MEAN PLATELET VOLUME 9.3 fL (9.2-13.0); MONOCYTES 14.4 %; MONOCYTES ABSOLUTE 0.47 10/3/uL (0.21-1.20); NEUTROPHILS 45.1 %; NEUTROPHILS ABSOLUTE 1.47 10/3/uL (2.02-8.40); PLATELET COUNT 216 10/3/uL (150-400); RBC DISTRIBUTION WIDTH 14.9 % (12.0-16.0); RED CELL COUNT 3.08 10/6/uL (4.0-5.6); WHITE BLOOD CELLS 3.3 10/3/uL (4.5-10.5)
[2016-05-23 05:05] LABS: BUN (BLOOD UREA NITROGEN) 5 MG/DL (6-23); CALCIUM, SERUM 8.5 MG/DL (8.5-10.4); CHLORIDE, SERUM 104 MMOL/L (96-112); CO2 (CARBON DIOXIDE) 25 MMOL/L (24-34); CREATININE 0.53 MG/DL (0.55-1.02); GFR AFRICAN AMERICAN 113 ML/MIN (>=60); GFR NON AFRICAN AMERICAN 98 ML/MIN (>=60); GLUCOSE, SERUM 90 MG/DL (60-99); MANUAL DIFF NO %; SODIUM, SERUM 140 MMOL/L (135-148)
[2016-05-23 06:56] LABS: PROTIME (NOT ORD) 13.1 SEC (12.0-14.5)
[2016-05-23 09:46] LABS: A/G 1.27 RATIO (0.9-2.10); ALB RELATIVE % 55.9 % (60.0-89.0); ALBUMIN (ELECTRO) 3.47 GM/DL (3.2-5.5); ALPHA 1 (ELECTRO) 0.24 GM/DL (0.1-0.4); ALPHA 1 RELAT % (NOT ORD) 3.8 % (1.0-4.0); ALPHA 2 (ELECTRO) 0.74 GM/DL (0.5-1.10); BETA GLOBULIN (SPE) 0.58 GM/DL (0.60-1.30); BETA RELATIVE % 9.3 % (9.0-22.0); GAMMA GLOBULIN (SPE) 1.18 G/DL (0.70-1.60)
[2016-05-24 06:23] LABS: BASOPHILS 0.2 %; BASOPHILS ABSOLUTE 0.01 10/3/uL (0.0-0.16); EOSINOPHILS 3.2 %; EOSINOPHILS ABSOLUTE 0.14 10/3/uL (0.0-0.53); HEMATOCRIT 30.1 % (36.0-48.0); HEMOGLOBIN 10.3 g/dL (12.0-16.0); IMMATURE GRANULOCYTES 0.2 %; IMMATURE GRANULOCYTES ABSOLUTE 0.01 10/3/uL (0.0-0.11); LYMPHOCYTES 29.3 %; LYMPHOCYTES ABSOLUTE 1.29 10/3/uL (0.67-4.30); MEAN CORPUS HGB CONC 34.2 g/dL (32.0-36.0); MEAN CORPUSCULAR HEMOGLOB 30.3 pg (26.0-34.0); MEAN CORPUSCULAR VOLUME 88.5 fL (80-100); MEAN PLATELET VOLUME 9.2 fL (9.2-13.0); MONOCYTES 12.2 %; MONOCYTES ABSOLUTE 0.54 10/3/uL (0.21-1.20); NEUTROPHILS 54.9 %; NEUTROPHILS ABSOLUTE 2.42 10/3/uL (2.02-8.40); PLATELET COUNT 227 10/3/uL (150-400); RBC DISTRIBUTION WIDTH 15.2 % (12.0-16.0); WHITE BLOOD CELLS 4.4 10/3/uL (4.5-10.5)
[2016-05-24 06:28] LABS: MANUAL DIFF NO %
[2016-05-24] MEDS ORDERED: HALF81 PO (11:27)
[2016-05-24] MEDS ORDERED: XARELTO15 MG PO (11:28)
[2016-05-24] MEDS ORDERED: V5 PO (11:29)
[2016-05-28 11:23] LABS: ABNORMAL PEAK 1 % 1.3 % (0)
[2016-05-28 11:24] LABS: ABNORMAL PEAK 1 0.08 G/DL
== END 2016-05-24 13:18 | disposition home or self-care (01) | DRG 286 ==
LOC: ER 10:21 → 6NO 17:15
PROVIDERS: Emergency Medicine; Internal Medicine; Internal Medicine Cardiovascular Disease; Nurse Practitioner Family
PROC: 4A023N7 Measurement of Cardiac Sampling and Pressure, Left Heart, Percutaneous Approach (ICD-10-PCS; principal; 2016-05-20)
PROC: B2111ZZ Fluoroscopy of Multiple Coronary Arteries using Low Osmolar Contrast (ICD-10-PCS; 2016-05-20)
PROC: B2151ZZ Fluoroscopy of Left Heart using Low Osmolar Contrast (ICD-10-PCS; 2016-05-20)
PROC: 0DB68ZX Excision of Stomach, Via Natural or Artificial Opening Endoscopic, Diagnostic (ICD-10-PCS; 2016-05-23)
DX: I51.81 Takotsubo syndrome (principal); I26.99 Other pulmonary embolism without acute cor pulmonale; D62 Acute posthemorrhagic anemia; K25.9 Gastric ulcer, unspecified as acute or chronic, without hemorrhage or perforation; R19.5 Other fecal abnormalities; K57.30 Diverticulosis of large intestine without perforation or abscess without bleeding; K29.70 Gastritis, unspecified, without bleeding; I95.2 Hypotension due to drugs; K58.0 Irritable bowel syndrome with diarrhea; Z86.010 Personal history of colon polyps; K31.9 Disease of stomach and duodenum, unspecified; I77.810 Thoracic aortic ectasia
CPT/HCPCS: 71010; 71275; 74177; 80048; 80076; 82272; 82607; 82728; 83540; 83550; 83615; 83735; 83880; 84155; 84165; 84484; 85014; 85018; 85025; 85045; 85347; 85379; 85610; 85730; 86334; 88305; 88313; 88342; 93005; 93458; 93970; 96374; 96375; 99152; 99285; A9270-GY; C1769; C1894; C8929; J2250; J2405; J2550; J3010; Q9957; Q9967